=== PATIENT | female | born 1965 | race Caucasian/White ===

== ENCOUNTER 2016-09-04 10:28 | Emergency (ER) | payer OTHER ==
[~2016-09-04] VITALS: Ht 157.5 cm; Wt 66.0 kg
[2016-09-04] MEDS ORDERED: PROC10TA PO (10:33)
[2016-09-04] MEDS ORDERED: LEVO25TA7 PO (10:33)
[2016-09-04] MEDS ORDERED: SODIUM CHLORIDE 0.9% 1,000 ML IV ONE (11:15)
[2016-09-04] MEDS ORDERED: DIPHENHYDRAMINE 50MG/ML VIAL IV ONE (11:15)
[2016-09-04] MEDS ORDERED: METOCLOPRAMIDE HCL 10MG/2ML VIAL IV ONE (11:15)
[2016-09-04 11:20] VITALS: BP 112/64
[2016-09-04 12:05] LABS: HEMATOCRIT. 46.1 % (36.0-48.0); HEMOGLOBIN. 15.7 g/dL (12.0-16.0); MEAN CORPUSCULAR HEMOGLOBIN 31.1 pg (28.0-32.0); MEAN CORPUSCULAR VOLUME 91.4 fL (81.0-99.0); RED BLOOD CELL COUNT 5.04 mill/uL (4.2-5.4); RED CELL DISTRIBUTION WIDTH 13.5 % (11.6-14.6)
[2016-09-04 12:09] LABS: CHLORIDE 102 mEq/L (98-107)
[2016-09-04 12:14] LABS: CARBON DIOXIDE 24 mEq/L (21-32)
[2016-09-04 13:04] LABS: PLATELET ESTIMATE NORMAL
[2016-09-04 13:05] LABS: PLATELET 182 x1000/uL (130-400)
== END 2016-09-04 12:20 | disposition left against medical advice (07) ==
LOC: ER 10:50
DX: R51 Headache (principal); W18.2XXA Fall in (into) shower or empty bathtub, initial encounter; Y93.E1 Activity, personal bathing and showering; Y92.091 Bathroom in other non-institutional residence as the place of occurrence of the external cause; R03.0 Elevated blood-pressure reading, without diagnosis of hypertension; R09.89 Other specified symptoms and signs involving the circulatory and respiratory systems; M54.5 Low back pain; G89.29 Other chronic pain; E03.9 Hypothyroidism, unspecified; Z90.710 Acquired absence of both cervix and uterus
CPT/HCPCS: 36415; 80048; 85007; 85027; 96374; 96375; 99284; J1200; J2765; J7030; Z7610; 96361